=== PATIENT | male | born 1950 | race Caucasian/White ===

== ENCOUNTER 2021-08-21 14:00 | Outpatient (CLI) | payer SELFPAY ==
[2021-08-21 14:14] VITALS: BP 109/70; PULSE 69; RESP 16; TEMP 36.6; O2SAT 96; BMI 20.1
[2021-08-21 14:38] VITALS: BP 108/65; PULSE 66; RESP 18; TEMP 36.2; O2SAT 98
[2021-08-21 15:38] VITALS: BP 103/60; PULSE 52; RESP 16; TEMP 36.2; O2SAT 98
== END 2021-08-21 14:01 | disposition home or self-care (01) ==
LOC: OPS 14:02
PROVIDERS: PCP Nurse Practitioner Family; Visit Provider Nurse Practitioner Family
DX: U07.1 COVID-19 (principal)
CPT/HCPCS: 96365